=== PATIENT | female | born 1990 | race Caucasian/White ===

== ENCOUNTER 2019-11-23 21:30 | Emergency (ER) | payer MEDICAID, OTHER ==
[2019-11-23] MEDS ORDERED: IBUPROFEN 800 MG TABLET PO ONE (22:34)
--- NOTE | 2019-11-23 22:36 | ER Document Report ---
HPI - HPI Time Seen by Provider: 11/23/19 22:31 Pain Level: 3 Notes: Patient is a 29-year-old female with no significant past medical history who presents complaint of crush injury to the right dorsal foot while at work. Patient states that she has noticed swelling and pain. She has pain with ambulation and weightbearing. The pain does not radiate otherwise. Denies drug allergies. She does have some tingling associated to her toes. Patient states that she also needs to have a drug test performed today. Denies any headache, fever, neck pain, URI, sore throat, chest pain, palpitations, syncope, cough, shortness of breath, wheeze, dyspnea, abdominal pain, nausea/vomiting/diarrhea, urinary retention, dysuria, hematuria, loss of control of bowel or bladder, numbness/tingling, saddle anesthesia, muscle paralysis, or rash. - ROS Systems Reviewed and Negative: Yes All other systems reviewed and negative - REPRODUCTIVE Reproductive: DENIES: : Past Medical History - Social History Smoking Status: Current Every Day Smoker Chew tobacco use (# tins/day): No Frequency of alcohol use: Occasional Drug Abuse: None Family History: Reviewed & Not Pertinent Patient has suicidal ideation: No Patient has homicidal ideation: No Vertical Provider Document - CONSTITUTIONAL Agree With Documented VS: Yes Notes: PHYSICAL EXAMINATION: GENERAL: Well-appearing, well-nourished and in no acute distress. LUNGS: Breath sounds clear to auscultation bilaterally and equal. No wheezes rales or rhonchi. HEART: Regular rate and rhythm without murmurs, rubs, gallops. Musculoskeletal: Rt foot/ankle: + Dorsal foot swelling. FROM to passive/active. Strength 5+/5. N/V intact distal. + tenderness to the dorsal foot. No bony tenderness of the ankle. Achilles intact. No obvious ecchymosis. Extremities: No cyanosis, clubbing, or edema b/l. Peripheral pulses 2+. Capillary refill less than 3 seconds. NEUROLOGICAL: Normal speech, limping gait. Normal sensory, motor exams PSYCH: Normal mood, normal affect. SKIN: Warm, Dry, normal turgor, no rashes or lesions noted. - INFECTION CONTROL TRAVEL OUTSIDE OF THE [place] IN LAST 30 DAYS: No Course - Re-evaluation Re-evalutation: 11/24/19 00:04 Patient is an afebrile, well-hydrated, 29-year-old female who presents to the ED with Rt foot pain which I suspect to be a contusion. Vitals are acceptable without any significant tachycardia, tachypnea, or hypoxia. PE is otherwise unremarkable for any neurovascular compromise, obvious tendon/ligament rupture, obvious fracture/dislocation, septic joint. X-ray was unremarkable for any acute pathology. Pt given tylenol/motrin. Patient is nontoxic-appearing. Patient is able to ambulate and weight-bear although she is limping. No other labs or imaging warranted at this time based on H&P. Conservative measures otherwise for symptoms. Recheck with your PCM in 3-5 days. Consider consult orthopedics. Return to the ED with any worsening/concerning symptoms otherwise as reviewed in discharge. Patient is in agreement. Pt declined crutches. Ice pack also provided. - Vital Signs Vital signs: Temp Pulse Resp BP Pulse Ox 97.8 F 87 18 114/73 100 11/23/19 21:46 11/23/19 21:46 11/23/19 21:46 11/23/19 21:46 11/23/19 21:46 Discharge - Discharge Clinical Impression: Right foot pain Condition: Stable Disposition: HOME, SELF-CARE Additional Instructions: Rest, Ice, Compression, Elevation Tylenol/ibuprofen as needed Light stretches daily Strength exercises as able Moist heat and massage may help F/u with your PCP in 3-5 days for a recheck Consider consult(s) with Orthopedics/physical therapy for ongoing/worsening symptoms Return to the ED with any worsening symptoms and/or development of fever, headache, chest pain, palpitations, syncope, shortness of breath, trouble breathing, abdominal pain, n/v/d, muscle weakness/paralysis, numbness/tingling, swelling, redness, or other worsening symptoms that are concerning to you. Prescriptions: Ibuprofen [Motrin 800 mg Tablet] 800 mg PO Q8H PRN #15 tab PRN Reason: Forms: Return to Work Referrals: CHERYL MARIO MD [Primary Care Provider] - Follow up as needed [facility] [Provider Group] - Follow up as needed
--- NOTE | 2019-11-23 23:25 | RADIOLOGY REPORT (SQ) ---
EXAM DESCRIPTION: X-RAY FOOT 3 OR MORE VIEWS CLINICAL HISTORY: 29 years Female pain dorsal foot s/p crush injury COMPARISON: None TECHNIQUE: AP, oblique and lateral radiographs of the right foot were obtained. FINDINGS: No fractures or subluxations are noted. There is moderate soft tissue swelling along the dorsum of the foot at the level of the metatarsals. No radiopaque foreign bodies. Bone mineralization is within normal limits. IMPRESSION: Moderate soft tissue swelling along the dorsum of the foot. No fractures or subluxations are seen.
[2019-11-23] MEDS ORDERED: ACETAMINOPHEN 325 MG TABLET PO ONE (23:33)
[2019-11-23 23:47] LABS: URINE AMPHETAMINES SCREEN NEGATIVE; URINE BARBITURATES SCREEN NEGATIVE; URINE BENZODIAZEPINES SCREEN NEGATIVE; URINE COCAINE SCREEN NEGATIVE; URINE MARIJUANA (THC) SCREEN NEGATIVE; URINE METHADONE SCREEN NEGATIVE; URINE PHENCYCLIDINE SCREEN NEGATIVE
[2019-11-24 00:27] VITALS: BP 106/63
== END 2019-11-24 00:17 | disposition home or self-care (01) ==
LOC: ER 21:30
DX: M79.671 Pain in right foot (principal); R20.2 Paresthesia of skin; M79.89 Other specified soft tissue disorders; W20.8XXA Other cause of strike by thrown, projected or falling object, initial encounter; Y99.0 Civilian activity done for income or pay; F17.200 Nicotine dependence, unspecified, uncomplicated
CPT/HCPCS: 80307; 99283